=== PATIENT | male | born 1935 | race Caucasian/White ===

== ENCOUNTER 2018-12-19 09:22 | Day surgery (SDC) | payer MEDICARE ==
[2018-12-19] MEDS ORDERED: FENTANYL PF 100MCG/2ML VIAL IV ONE (09:23)
[2018-12-19] MEDS ORDERED: PROPOFOL 10 MG/ML VIAL IV ONE (09:23)
[2018-12-19] MEDS ORDERED: LIDOCAINE 2% MDV (20MG/ML) 20ML VIAL IV ONE (09:23)
--- NOTE | 2018-12-20 07:50 | Operative Note ---
OPERATION: COLONOSCOPY to the cecum with cold snare polypectomy x5. INDICATION: Liver tumor with adenocarcinoma on biopsy. Primary is unclear. Colonoscopy is performed at this time for further evaluation. The patient does have a history of adenomatous polyps. His last colonoscopy was in [address] Luna. ANESTHESIA: Intravenous sedation was administered by the department of anesthesiology and included Diprivan titrated to effect. PROCEDURE: Following informed consent from this alert individual including a discussion of the risks and benefits of the procedure and an opportunity for the patient to ask questions, the patient was in the left lateral decubitus position. A digital rectal examination was performed. No abnormalities were noted. Following this, the Olympus [id number] video colonoscope was inserted into the rectum without resistance. The rectal mucosa had a normal appearance with normal folds and distensibility. The colonoscope was advanced up to the colon to the level of the cecum without much difficulty. The colon preparation overall was adequate except for the cecal base which had retained solid stool. Washing and suctioning were employed vigorously throughout. As best visualized, there were no tumors in the cecum. From this point, the colonoscope was then withdrawn. There was a total of 6 polyps removed with 1 in the ascending colon and 5 in the descending colon, each measuring between 5-7 mm in size. The polyps were removed with cold snare polypectomy and suctioned through a colonoscope into a collection trap. Extensive diverticulosis was noted in the sigmoid colon. Retroflexion in the rectum demonstrated small internal hemorrhoids. The endoscope was straightened and withdrawn. The patient tolerated the procedure well and was returned to the recovery area in stable condition. IMPRESSION: 1. Five colon polyps removed as described above with 1 in the ascending colon and 5 in the descending colon. 2. Extensive sigmoid diverticulosis. 3. Small internal hemorrhoids. RECOMMENDATIONS: Further recommendations will be forthcoming pending pathology. The patient will be following up with Dr. Romero and Dr. Jonathan López. As always, thank you for allowing me to participate in the care of your patient. ROXANA
--- NOTE | 2018-12-20 07:50 | Operative Note ---
OPERATION: ESOPHAGOGASTRODUODENOSCOPY. INDICATION: History of liver tumor with biopsy-proven adenocarcinoma. The primary source is unclear. For this reason, upper and lower endoscopy has been requested. The patient denies upper GI complaints. ANESTHESIA: Intravenous sedation was administered by the department of anesthesiology and included Diprivan titrated to effect. PROCEDURE: Following informed consent from this alert individual, including a discussion of the risks and benefits of the procedure and an opportunity for the patient to ask questions, the patient was in the left lateral decubitus position. The Olympus [id number] video endoscope was inserted into the esophagus without resistance. The proximal esophagus had a normal appearance with normal folds and distensibility. The mid and distal esophagus likewise was free from changes. The squamocolumnar junction approximated the diaphragmatic hiatus. The stomach was entered and found to be mildly erythematous in a diffuse fashion. There were no ulcerations, erosions, or tumors noted. The pylorus was patent. The duodenal bulb, sweep and descending duodenum were examined in a serial fashion and found to be normal. The instrument was then withdrawn back into the body of the stomach. Retroflexion accomplished following air insufflation failed to demonstrate any additional changes. The endoscope was then straightened and withdrawn back through a normal-appearing esophagus and removed from the patient. The patient tolerated the procedure well and was returned to the recovery area in stable condition. IMPRESSION: 1. Mild diffuse gastritis. 2. Otherwise unremarkable esophagogastroduodenoscopy. RECOMMENDATION: The patient will undergo colonoscopy at this time. He will be following up with Oncology and Primary Care. As always, thank you for allowing me to participate in the care of your patient. ROXANA
== END 2018-12-19 12:15 | disposition home or self-care (01) ==
LOC: HOP 09:22
PROVIDERS: ATTEND Internal Medicine Gastroenterology
DX: C22.7 Other specified carcinomas of liver (principal); Z86.010 Personal history of colon polyps; K63.5 Polyp of colon; D12.4 Benign neoplasm of descending colon; K57.30 Diverticulosis of large intestine without perforation or abscess without bleeding; K64.8 Other hemorrhoids; K29.70 Gastritis, unspecified, without bleeding; E78.00 Pure hypercholesterolemia, unspecified; I48.91 Unspecified atrial fibrillation; I10 Essential (primary) hypertension; K21.9 Gastro-esophageal reflux disease without esophagitis; M19.90 Unspecified osteoarthritis, unspecified site